=== PATIENT | female | born 1990 | race African-American/Black ===

== ENCOUNTER 2022-11-11 10:50 | Inpatient (IN) | payer OTHER ==
[2022-11-11] MEDS ORDERED: TERBUTALINE SULFATE 1 MG/1 ML VIAL SQ ONE (11:09)
[2022-11-11] MEDS ORDERED: OXYTOCIN 20 UNITS in 0.9% NS 20 UNIT/1,000 ML INFUS.BAG IV ONE (12:04)
[2022-11-11 12:05] LABS: HEMATOCRIT 35.1 % (32.4-45.2); HEMOGLOBIN 11.7 GM/dL (10.7-15.3); MCH 29.6 pg (25.7-33.7); MCHC 33.4 g/dl (32.0-36.0); MEAN CELL VOLUME 88.4 fl (80-96); MEAN PLT VOLUME 9.7 fl (7.5-11.1); PLATELET COUNT 239 10^3/uL (134-434); RBC 3.97 M/mm3 (3.60-5.2); RDW 17.3 % (11.6-15.6); WHITE BLOOD COUNT 22.6 K/mm3 (4.0-10.0)
[2022-11-11 12:23] LABS: POTASSIUM 4.3 mmol/L (3.5-5.1)
[2022-11-11 12:24] LABS: CALCIUM 9.5 mg/dL (8.5-10.1)
[2022-11-11 12:25] LABS: BLOOD UREA NITROGEN 7.1 mg/dL (7-18)
[2022-11-11 12:28] LABS: CREATININE 0.8 mg/dL (0.55-1.3)
[2022-11-11] MEDS ORDERED: ELECTROLYTE-148 SOLN 1,000 ML IV ONE (12:30)
[2022-11-11 12:53] LABS: ANISOCYTOSIS 2+; MACROCYTOSIS 0; TEAR DROP CELLS 1+
[2022-11-11] MEDS ORDERED: BENZOCAINE 28 GM HEMORRHOIDAL OINTMENT TP PRN (13:11)
[2022-11-11] MEDS ORDERED: oxyCODONE HCL 5 MG TABLET PO PRN (13:11)
[2022-11-11] MEDS ORDERED: WITCH HAZEL 50% (TUCKS) 40 PAD/JAR PAD TP PRN (13:11)
[2022-11-11] MEDS ORDERED: METHYLERGONOVINE MALEATE 0.2 MG/1 ML AMP IM PRN (13:11)
[2022-11-11] MEDS ORDERED: BISACODYL 10 MG SUPP.RECT RC PRN (13:11)
[2022-11-11] MEDS ORDERED: BENZOCAINE 20% 57 GM BOTTLE TP PRN (13:11)
[2022-11-11] MEDS ORDERED: OXYTOCIN 20 UNITS in 0.9% NS 20 UNIT/1,000 ML INFUS.BAG IV SCH (13:15)
[2022-11-11 13:19] LABS: HIV INTERPRETATION NEGATIVE (NEGATIVE)
[2022-11-11] MEDS ORDERED: ELECTROLYTE-148 SOLN 1,000 ML IV SCH (13:30)
[2022-11-11 13:34] VITALS: BMI 42.5
[2022-11-11] MEDS: IBUPROFEN 600 MG TABLET (FP) PO PRN (17:32)
[2022-11-12 08:56] LABS: HEMATOCRIT 30.5 % (32.4-45.2); HEMOGLOBIN 9.9 GM/dL (10.7-15.3); MCH 29.5 pg (25.7-33.7); MCHC 32.5 g/dl (32.0-36.0); MEAN CELL VOLUME 90.8 fl (80-96); MEAN PLT VOLUME 10.2 fl (7.5-11.1); PLATELET COUNT 238 10^3/uL (134-434); RBC 3.36 M/mm3 (3.60-5.2); RDW 17.3 % (11.6-15.6); WHITE BLOOD COUNT 26.6 K/mm3 (4.0-10.0)
[2022-11-12] MEDS: FERROUS SO4 325 MG TABLET (FP) PO SCH (09:18)
[2022-11-12] MEDS: PRENATAL VITAMINS W/ FOLIC ACID TABLET (FP) PO SCH (09:18)
[2022-11-12] MEDS ORDERED: DIPHTH,PERTUSS(ACELL),TET 0.5 ML DISP.SYRIN IM ONE (10:00)
[2022-11-12 10:10] LABS: ANISOCYTOSIS 0; HELMET CELLS 0; HOWELL-JOLLY BODIES 0; MACROCYTOSIS 0; OVALOCYTE 0; ROULEAU 0; SICKELED CELLS 0; TARGET CELLS 0; TEAR DROP CELLS 0; TOXIC GRANULATION 0
[2022-11-12] MEDS: IBUPROFEN 600 MG TABLET (FP) PO PRN ×2 (10:35→17:22)
[2022-11-12] MEDS: ACETAMINOPHEN 325 MG TABLET (FP) PO PRN (21:25)
[2022-11-12] MEDS ORDERED: SENNOSIDES/DOCUSATE COMBO (SENNA PLUS) TABLET (UD) PO PRN (22:00)
[2022-11-12 23:06] VITALS: RESP 18; TEMP 97.6
[2022-11-13] MEDS: IBUPROFEN 600 MG TABLET (FP) PO PRN ×2 (01:43→15:41)
[2022-11-13 08:36] LABS: HEMATOCRIT 27.1 % (32.4-45.2); HEMOGLOBIN 8.9 GM/dL (10.7-15.3); MCH 29.4 pg (25.7-33.7); MEAN PLT VOLUME 9.8 fl (7.5-11.1); PLATELET COUNT 223 10^3/uL (134-434); RBC 3.05 M/mm3 (3.60-5.2); RDW 17.9 % (11.6-15.6); WHITE BLOOD COUNT 18.3 K/mm3 (4.0-10.0)
[2022-11-13] MEDS: FERROUS SO4 325 MG TABLET (FP) PO SCH (09:18)
[2022-11-13] MEDS: PRENATAL VITAMINS W/ FOLIC ACID TABLET (FP) PO SCH (09:18)
[2022-11-13 09:22] VITALS: BP 114/82; PULSE 100
[2022-11-13] MEDS ORDERED: guaiFENesin 200 MG/10 ML 10 ML UNIT-DOSE CUPS PO PRN (14:00)
[2022-11-13] MEDS: ACETAMINOPHEN 325 MG TABLET (FP) PO PRN (14:21)
== END 2022-11-13 18:40 | disposition home or self-care (01) | DRG 560 ==
LOC: JDEL 10:50 → JLDR 11:35 → J3W 15:00
PROVIDERS: ADMIT Obstetrics & Gynecology; ATTEND Obstetrics & Gynecology
PROC: 10E0XZZ Delivery of Products of Conception, External Approach (ICD-10-PCS; principal; 2022-11-11)
PROC: 0W8NXZZ Division of Female Perineum, External Approach (ICD-10-PCS; 2022-11-11)
DX: O80 Encounter for full-term uncomplicated delivery (principal); Z3A.39 39 weeks gestation of pregnancy; Z37.0 Single live birth
CPT/HCPCS: 36415; 80048; 85025; 85027; 86780; 86850; 86900; 86901; 87389; 90715